=== PATIENT | male | born 1995 | race Two or more races ===

== ENCOUNTER 2021-05-20 20:21 | Emergency (ER) | payer OTHER ==
[~2021-05-20] VITALS: Ht 180.3 cm; Wt 56.8 kg
[2021-05-20] MEDS ORDERED: AMOX1TAB16 PO (21:29)
[2021-05-20 21:44] VITALS: BP 130/75
== END 2021-05-20 21:45 | disposition home or self-care (01) ==
LOC: EMS 20:24
DX: K04.7 Periapical abscess without sinus (principal); F12.90 Cannabis use, unspecified, uncomplicated
CPT/HCPCS: 41800; 99283